=== PATIENT | female | born 1995 | race American Indian/Alaskan Native ===

== ENCOUNTER 2018-03-04 23:35 | Emergency (ER) | payer SELFPAY ==
[2018-03-05] MEDS ORDERED: Sodium Chloride 0.9% 1,000 ML IV STA (00:08)
--- NOTE | 2018-03-05 00:11 | ED PDOC ---
Arrival/HPI <Guzman Stewart - Last Filed: 03/05/18 02:49> - General Historian: Patient - History of Present Illness Time/Duration: < week <Presley Crow - Last Filed: 03/05/18 04:01> - General Chief Complaint: Flu-like Symptoms Time Seen by Provider: 03/04/18 23:50 - History of Present Illness Narrative History of Present Illness (Text): 03/05/18 00:10 Patient is a 22 year old female with no past medical history presenting to the emergency room with a CC of headache, body aches and increased urinary frequency for 3 days. Patient was seen at [facility] yesterday. She was diagnosed with a UTI and given Keflex. She has been experiencing chills and subjective fevers. She has had decreased appetite for 3 days. She started to become nauseous yesterday and vomited a total of 6 times today. The emesis was described as undigested food and bile. Patient denies seeing any blood. She has been experiencing worsening fatigue and body aches for 3 days. She has had a constant headache, which had a gradual onset for the past three days. She denies diarrhea, constipation, chest pain, abdominal pain, shortness of breath, lost of bowels, numbness or tingling. (Presley Crow) Past Medical History - Provider Review Nursing Documentation Reviewed: Yes - Reproductive Menopause: No - Cardiac Hx Cardiac Disorders: No - Pulmonary Hx Respiratory Disorders: No - Neurological Hx Neurological Disorder: No - HEENT Hx HEENT Disorder: No - Renal Hx Renal Disorder: No - Endocrine/Metabolic Hx Endocrine Disorders: No - Hematological/Oncological Hx Blood Disorders: No - Integumentary Hx Dermatological Disorder: No - Musculoskeletal/Rheumatological Hx Musculoskeletal Disorders: No - Gastrointestinal Hx Gastrointestinal Disorders: No - Genitourinary/Gynecological Hx Genitourinary Disorders: No - Psychiatric Hx Psychophysiologic Disorder: No Hx Substance Use: No - Anesthesia Hx Anesthesia: No <Presley Crow - Last Filed: 03/05/18 04:01> Family/Social History - Physician Review Nursing Documentation Reviewed: Yes Family/Social History: No Known Family HX Smoking Status: Never Smoked Hx Alcohol Use: No Hx Substance Use: No <Presley Crow - Last Filed: 03/05/18 04:01> Allergies/Home Meds <Guzman Stewart - Last Filed: 03/05/18 02:49> <Presley Crow - Last Filed: 03/05/18 04:01> Allergies/Adverse Reactions: Allergies No Known Allergies Allergy (Verified 03/04/18 23:44) Home Medications: Home Meds Medication Instructions Recorded Confirmed No Known Home Med 03/04/18 03/04/18 Review of Systems - Physician Review All systems were reviewed & negative as marked: Yes - Review of Systems Constitutional: Fatigue, Fevers Eyes: Normal. absent: Vision Changes, Eye Pain ENT: Normal. absent: Sore Throat, Rhinorrhea, Sinus Congestion Respiratory: Normal. absent: SOB, Cough, Sputum, Wheezing Cardiovascular: Normal. absent: Chest Pain, Palpitations, Edema, Calf Pain, Syncope Gastrointestinal: Nausea, Vomiting. absent: Abdominal Pain, Constipation, Diarrhea Genitourinary Female: Frequency (increased). absent: Dysuria, Hematuria Musculoskeletal: Myalgias. absent: Back Pain, Neck Pain Skin: Normal. absent: Rash, Pruritis Neurological: Headache. absent: Dizziness, Focal Weakness Endocrine: Normal. absent: Diaphoresis Hemo/Lymphatic: Normal Psychiatric: Normal <Presley Crow - Last Filed: 03/05/18 04:01> Physical Exam Vital Signs Reviewed: Yes Temperature: Febrile Blood Pressure: Normal Pulse: Tachycardic Respiratory Rate: Normal Appearance: Positive for: Non-Toxic, Ill-Appearing, Uncomfortable Pain Distress: None Mental Status: Positive for: Alert and Oriented X 3 - Systems Exam Head: Present: Atraumatic, Normocephalic Pupils: Present: PERRL Extroacular Muscles: Present: EOMI Conjunctiva: Present: Normal Mouth: Present: Moist Mucous Membranes Neck: Present: Normal Range of Motion Respiratory/Chest: Present: Clear to Auscultation, Good Air Exchange. No: Respiratory Distress, Accessory Muscle Use Cardiovascular: Present: Regular Rate and Rhythm, Normal S1, S2. No: Murmurs Abdomen: No: Tenderness, Distention, Peritoneal Signs Back: Present: Normal Inspection Upper Extremity: Present: Normal Inspection. No: Cyanosis, Edema Lower Extremity: Present: Normal Inspection. No: Edema Neurological: Present: GCS=15, CN II-XII Intact, Speech Normal Skin: Present: Warm, Dry, Normal Color. No: Rashes Psychiatric: Present: Alert, Oriented x 3, Normal Insight, Normal Concentration <Presley Crow - Last Filed: 03/05/18 04:01> Vital Signs Temp Pulse Resp BP Pulse Ox 03/05/18 01:08 100.3 F H 03/05/18 00:29 100.2 F H 106 H 17 104/62 100 03/04/18 23:45 100.4 F H 128 H 19 105/71 98 Medical Decision Making - Lab Interpretations I have reviewed the lab results: Yes - RAD Interpretation Networker: ED Physician <Guzman Stewart - Last Filed: 03/05/18 02:49> Re-evaluation Time: 02:58 Reassessment Condition: Improved - Lab Interpretations I have reviewed the lab results: Yes - RAD Interpretation Networker: ED Physician <Presley Crow - Last Filed: 03/05/18 04:01> ED Course and Treatment: Impression: Pt seen and evaluated with hospital medical assistant. Aware and agrees with HPI, clinical findings, plan, and management. Pt, with no significant past medical history, presented for headache, body aches, and increased urinary frequency. Als reports subjective fever, nausea, and vomiting. Plan: -- CXR -- Labs -- Urinalysis, urine culture -- Rapid influenza, throat culture -- IV fluids -- Reassess and disposition (Guzman Stewart) Blood work and UA ordered 1L bolus of NS 03/05/18 00:59 Elevated WBC Potassium repleted 03/05/18 01:54 CXR - No active disease. Normal CXR 03/05/18 02:58 Ordered 1gm Rocephin. Patient's symptoms have resolved. Patient instructed to continue to taking Keflex as previously prescribed. Patient informed she is being discharged home and is to follow up with her PMD in 1-2 days. Patient states she understands and agrees to discharge plan. 03/05/18 03:54 Rocephin completed. Patient's symptoms are still resolved. Patient is to be discharged home. (Presley Crow) - Lab Interpretations Lab Results: 03/05/18 00:18 03/05/18 00:18 Lab Results 03/05/18 00:18: Grp A Beta Strep Ag Negative 03/05/18 00:18: Influenza Typ A,B (EIA) Negative for flu a/b 03/05/18 00:18: Sodium 141, Potassium 3.1 L, Chloride 106, Carbon Dioxide 24, Anion Gap 14, BUN 9, Creatinine 0.8, Est GFR ( Amer) > 60, Est GFR (Non- Af Amer) > 60, Random Glucose 108, Calcium 8.5, Total Bilirubin 0.6, AST 34, ALT 45, Alkaline Phosphatase 63, Total Protein 7.1, Albumin 3.6, Globulin 3.5, Albumin/Globulin Ratio 1.0 L, Lipase 206 03/05/18 00:18: Urine Color Yellow, Urine Appearance Clear, Urine pH 6.0, Ur Specific [place] 1.025, Urine Protein 100 H, Urine Glucose (UA) Negative, Urine Ketones 40 H, Urine Blood Large H, Urine Nitrate Negative, Urine Bilirubin Negative, Urine Urobilinogen 1.0 H, Ur Leukocyte Esterase Trace H, Urine RBC 5 - 10, Urine WBC 1 - 3, Ur Epithelial Cells 0 - 2, Urine Bacteria Few, Urine HCG , Qual Cancelled 03/05/18 00:18: WBC 15.2 H, RBC 4.10, Hgb 11.0 L, Hct 32.9 L, MCV 80.2, MCH 26.8 , MCHC 33.4, RDW 13.7, Plt Count 210, MPV 11.1 H, Gran % 82.7 H, Lymph % (Auto) 6.3 L, [place] % (Auto) 10.9 H, Eos % (Auto) 0.0 L, Baso % (Auto) 0.1, Gran # 12.60 H, Lymph # (Auto) 1.0 L, [place] # (Auto) 1.7 H, Eos # (Auto) 0.0, Baso # ( Auto) 0.01 - RAD Interpretation Narrative RAD Interpretations (Text): 03/05/18 01:56 CXR - No active disease. Normal CXR. (Presley Crow) Radiology Orders: 03/05/18 01:18 CXR [CHEST PORTABLE] [RAD] Stat - Medication Orders Current Medication Orders: Ceftriaxone Sodium (Rocephin 1 Gram Ivpb) 1 gm in 100 mls @ 100 mls/hr IVPB STAT STA PRN Reason: Protocol Stop: 03/05/18 03:55 Last Admin: 03/05/18 03:14 Dose: 100 mls/hr Discontinued Medications Acetaminophen (Tylenol 325mg Tab) 975 mg PO STAT STA Stop: 03/05/18 01:03 Last Admin: 03/05/18 01:08 Dose: 975 mg MAR Pain/Vitals Document 03/05/18 01:08 IT (Rec: 03/05/18 01:08 IT [id number]) Vitals Temperature (97.6 F-99.6 F) 100.3 F Temperature Source Oral Sodium Chloride (Sodium Chloride 0.9%) 1,000 mls @ 1,000 mls/hr IV .Q1H STA Stop: 03/05/18 01:07 Last Admin: 03/05/18 00:51 Dose: 1,000 mls/hr eMAR Start Stop Document 03/05/18 00:51 IT (Rec: 03/05/18 00:51 IT [id number]) Intravenous Solution Start Date 03/05/18 Start Time 00:51 Potassium Chloride (K-Dur 20 Meq Er Tab) 40 meq PO STAT STA Stop: 03/05/18 01:00 Last Admin: 03/05/18 01:07 Dose: 40 meq Disposition/Present on Arrival <Guzman Stewart - Last Filed: 03/05/18 02:49> - Present on Arrival Any Indicators Present on Arrival: No History of DVT/PE: No History of Uncontrolled Diabetes: No Urinary Catheter: No History of Decub. Ulcer: No History Surgical Site Infection Following: None - Disposition Have Diagnosis and Disposition been Completed?: Yes Disposition Time: 03:53 Patient Plan: Discharge <Presley Crow - Last Filed: 03/05/18 04:01> - Disposition Diagnosis: UTI (urinary tract infection) Disposition: HOME/ ROUTINE Patient Problems: Current Active Problems Problem Status Onset UTI (urinary tract infection) Acute Condition: IMPROVED Discharge Instructions (ExitCare): Urinary Tract Infection, Adult (DC) Additional Instructions: Patient instructed to continue to taking Keflex as previously prescribed. Patient informed she is being discharged home and is to follow up with her PMD in 1-2 days. Patient states she understands and agrees to discharge plan. Forms: [employer] ([place]ian)
[2018-03-05 00:30] VITALS: RESP 17; O2SAT 100
[2018-03-05 00:40] LABS: BASO # 0.01 K/mm3 (0.0-2.0); BASO % 0.1 % (0.0-3.0); GRAN # 12.6 (1.4-6.5); GRAN % 82.7 % (50.0-68.0); LYMPH % 6.3 % (22.0-35.0); MEAN CELL VOLUME 80.2 fl (80.0-105.0); MEAN CORPUSCULAR HEMOGLOBIN 26.8 pg (25.0-35.0); MEAN CORPUSCULAR HGB CONC 33.4 g/dl (31.0-37.0); MEAN PLATELET VOLUME 11.1 fl (7.0-11.0); MONO # 1.7 (0.1-0.6); MONO % 10.9 % (1.0-6.0); RBC 4.1 10^6/uL (3.5-6.1); RED CELL DISTRIBUTION WIDTH 13.7 % (11.5-14.5); WHITE BLOOD COUNT 15.2 10^3/ul (4.5-11.0)
[2018-03-05 00:43] LABS: ALBUMIN 3.6 g/dL (3.0-4.8); ALT/SGPT 45 U/L (7-56); AST/SGOT 34 U/L (14-36); BLOOD UREA NITROGEN 9 mg/dL (7-21); CALCIUM 8.5 mg/dL (8.4-10.5); GFR AFRICAN-AMERICAN > 60; GFR NON-AFRICAN AMERICAN > 60; LIPASE 206 U/L (23-300)
[2018-03-05 00:54] LABS: URINE APPEARANCE CLEAR (CLEAR); URINE BILIRUBIN NEGATIVE (NEGATIVE); URINE BLOOD LARGE (NEGATIVE); URINE COLOR YELLOW (YELLOW); URINE GLUCOSE (UA) NEGATIVE (NEGATIVE); URINE LEUKOCYTE ESTERASE TRACE Leu/uL (NEGATIVE); URINE PROTEIN 100 mg/dL (<30 mg/dL)
[2018-03-05] MEDS ORDERED: Potassium Chloride 20 mEq ER Tab PO STA (00:59)
[2018-03-05 01:10] LABS: URINE BACTERIA FEW (NEG); URINE EPITHELIAL CELLS 0 - 2 /hpf (0-5)
[2018-03-05] MEDS ORDERED: cefTRIAXone 1 gm 1 GM/100 ML BAG IVPB STA (02:56)
[2018-03-05 04:06] VITALS: BP 104/67; PULSE 100; TEMP 98.8
--- NOTE | 2018-03-05 08:49 | RAD ---
HISTORY: Fever COMPARISON: No prior. FINDINGS: LUNGS: No active pulmonary disease. PLEURA: No significant pleural effusion identified, no pneumothorax apparent. CARDIOVASCULAR: Normal. OSSEOUS STRUCTURES: No significant abnormalities. VISUALIZED UPPER ABDOMEN: Normal. OTHER FINDINGS: None. IMPRESSION: No active disease.
== END 2018-03-05 04:06 | disposition home or self-care (01) ==
LOC: ED 23:35
DX: N39.0 Urinary tract infection, site not specified (principal)
CPT/HCPCS: 71045; 80053; 81001; 83690; 85025; 87070; 87086; 87430; 87804; 99284; J0696; J7040

== ENCOUNTER 2018-03-05 22:43 | Emergency (ER) | payer SELFPAY ==
[2018-03-05 23:01] VITALS: BMI 28.3
[2018-03-05 23:08] VITALS: BP 93/55; PULSE 142; RESP 18; TEMP 103; O2SAT 97
--- NOTE | 2018-03-05 23:17 | ED PDOC ---
Arrival/HPI - General Chief Complaint: Fever Time Seen by Provider: 03/05/18 23:01 Historian: Patient - History of Present Illness Narrative History of Present Illness (Text): 03/05/18 23:17 22 year old female, with no significant past medical history, presents to the emergency department for the 3rd time complaining of fever, chills, and body aches that began 4 days ago. Patient was seen at [facility] 2 days ago and was diagnosed with UTI and discharged with Keflex. Yesterday, patient was also seen in [facility] complaining of the same symptoms. Patient was given first round of Rocephin and was told to continue on her Keflex medication that she did not know she had. Patient states she left her prescription of Keflex at school and reports she needs something strong for the pain. Patient denies any chest pain, shortness of breath, nausea, vomiting, diarrhea, urinary symptoms, back pain, neck pain, headache, dizziness, or any other complaints. Time/Duration: Other (4 days) Symptom Onset: Gradual Symptom Course: Unchanged Activities at Onset: Light Context: Home Past Medical History - Provider Review Nursing Documentation Reviewed: Yes - Cardiac Hx Cardiac Disorders: No - Pulmonary Hx Respiratory Disorders: No - Neurological Hx Neurological Disorder: No - HEENT Hx HEENT Disorder: No - Renal Hx Renal Disorder: No - Endocrine/Metabolic Hx Endocrine Disorders: No - Hematological/Oncological Hx Blood Disorders: No - Integumentary Hx Dermatological Disorder: No - Musculoskeletal/Rheumatological Hx Musculoskeletal Disorders: No - Gastrointestinal Hx Gastrointestinal Disorders: No - Genitourinary/Gynecological Hx Genitourinary Disorders: No - Psychiatric Hx Psychophysiologic Disorder: No Hx Substance Use: No - Anesthesia Hx Anesthesia: No Family/Social History - Physician Review Nursing Documentation Reviewed: Yes Family/Social History: No Known Family HX Smoking Status: Never Smoked Hx Alcohol Use: No Hx Substance Use: No Allergies/Home Meds Allergies/Adverse Reactions: Allergies No Known Allergies Allergy (Verified 03/05/18 23:01) Review of Systems - Physician Review All systems were reviewed & negative as marked: Yes - Review of Systems Constitutional: Fevers, Other (Chills) Respiratory: absent: SOB Cardiovascular: absent: Chest Pain Gastrointestinal: absent: Diarrhea, Nausea, Vomiting Genitourinary Female: absent: Dysuria, Frequency, Hematuria Musculoskeletal: Other (Body aches). absent: Back Pain, Neck Pain Neurological: absent: Headache, Dizziness Physical Exam Vital Signs Reviewed: Yes Vital Signs Temp Pulse Resp BP Pulse Ox 03/05/18 23:07 103.0 F H 142 H 18 93/55 L 97 Temperature: Febrile Blood Pressure: Hypotensive Pulse: Tachycardic Respiratory Rate: Normal Appearance: Positive for: Well-Appearing, Non-Toxic, Comfortable Pain Distress: None Mental Status: Positive for: Alert and Oriented X 3 - Systems Exam Head: Present: Atraumatic, Normocephalic Pupils: Present: PERRL Extroacular Muscles: Present: EOMI Conjunctiva: Present: Normal Mouth: Present: Moist Mucous Membranes Neck: Present: Normal Range of Motion Respiratory/Chest: Present: Clear to Auscultation, Good Air Exchange. No: Respiratory Distress, Accessory Muscle Use Cardiovascular: Present: Regular Rate and Rhythm, Normal S1, S2. No: Murmurs Abdomen: No: Tenderness, Distention, Peritoneal Signs Back: Present: Normal Inspection Upper Extremity: Present: Normal Inspection. No: Cyanosis, Edema Lower Extremity: Present: Normal Inspection. No: Edema Neurological: Present: GCS=15, CN II-XII Intact, Speech Normal Skin: Present: Warm, Dry, Normal Color. No: Rashes Psychiatric: Present: Alert, Oriented x 3, Normal Insight, Normal Concentration Medical Decision Making ED Course and Treatment: 03/05/18 23:17 Impression: 22 year old female presents complaining of fever, chills and body aches. Patient was recently diagnosed with an UTI at [facility] 2 days ago and also seen at [facility] yesterday for the same symptoms. Plan: -- Tylenol, Keflex, Motrin -- Reassess and disposition Prior Visits: Notes and results from previous visits were reviewed. Patient was last seen in the emergency department on 03/05/18 presents complaining of headache, body aches and increased urinary frequency for 3 days. Patient was discharged and told to continue on her Keflex medication prescribed at [facility]. Progress Notes: 03/05/18 23:27 Patient was discharged with prescription of Tylenol, Keflex and Ibuprofen. I have discussed the results and plan with the patient, who expresses understanding. Patient in agreement with plan to be discharged home. Patient is stable for discharge. Patient was instructed to follow up with physician or return if symptoms worsen or new concerning symptoms arise. - Medication Orders Current Medication Orders: Discontinued Medications Acetaminophen (Tylenol 325mg Tab) 650 mg PO STAT STA Stop: 03/05/18 23:16 Cephalexin Monohydrate (Keflex) 500 mg PO STAT STA PRN Reason: Protocol Stop: 03/05/18 23:17 Ibuprofen (Motrin Tab) 800 mg PO STAT STA Stop: 03/05/18 23:17 - Scribe Statement The provider has reviewed the documentation as recorded by the Edwin Lawler Provider Scribe Attestation: All medical record entries made by the Scribe were at my direction and personally dictated by me. I have reviewed the chart and agree that the record accurately reflects my personal performance of the history, physical exam, medical decision making, and the department course for this patient. I have also personally directed, reviewed, and agree with the discharge instructions and disposition. Disposition/Present on Arrival - Present on Arrival Any Indicators Present on Arrival: No History of DVT/PE: No History of Uncontrolled Diabetes: No Urinary Catheter: No History of Decub. Ulcer: No History Surgical Site Infection Following: None - Disposition Have Diagnosis and Disposition been Completed?: Yes Diagnosis: UTI (urinary tract infection), Fever Disposition Time: 23:27 Patient Plan: Discharge Discharge Instructions (ExitCare): Urinary Tract Infection, Adult (DC), Fever, Adult (DC) Additional Instructions: Purvi - You need to be on antibiotics for at least 48 hours before you can expect the fever to go away. In the meanwhile, you can take tylenol, or motrin, or both for fever and body aches. Restart the Keflex [the antibiotic] tomorrow morning , you got a dose here tonight. Drink plenty of liquids and rest as much as possible. Return to us if any problems. Reid- Dr. [place] Prescriptions: Acetaminophen [Tylenol 325mg tab] 650 mg PO QID #60 tab Cephalexin [cephalexin] 500 mg PO TID #30 cap Ibuprofen [Motrin Tab] 800 mg PO TID #30 tab Forms: [employer] (Korean), SCHOOL NOTE, WORK NOTE
== END 2018-03-05 23:56 | disposition home or self-care (01) ==
LOC: ED 22:43
DX: N39.0 Urinary tract infection, site not specified (principal); R50.9 Fever, unspecified